=== PATIENT | male | born 1955 | race Two or more races ===

== ENCOUNTER 2025-01-05 17:56 | Emergency (ER) | payer OTHER, MEDICARE ==
[~2025-01-05] VITALS: Ht 170.2 cm; Wt 78.0 kg
[2025-01-05 18:01] VITALS: O2SAT 98
[2025-01-05 18:45] LABS: EOSINOPHILS % 3.9 % (0.0-5.0); HEMATOCRIT. 43.8 % (42.0-52.0); HEMOGLOBIN. 14.5 g/dL (14.0-18.0); LYMPHOCYTES % 42.8 % (20.0-50.0); MEAN CORPUSCULAR HEMOGLOBIN 31.2 pg (28.0-32.0); MEAN CORPUSCULAR HGB CONC 33.1 g/dL (31.0-37.0); MEAN CORPUSCULAR VOLUME 94.2 fL (80.0-94.0); MEAN PLATELET VOLUME 9.2 fl (7.4-10.4); MONOCYTES % 9.8 % (2.0-8.0); NEUTROPHILS % 42.5 % (40.0-76.0); PLATELET 206 x1000/uL (130-400); RED BLOOD CELL COUNT 4.65 mill/uL (4.7-6.1); RED CELL DISTRIBUTION WIDTH 14.5 % (11.6-14.6); WHITE BLOOD COUNT 3.8 x1000/uL (4.5-11.0)
[2025-01-05 18:51] LABS: CHLORIDE 107 mEq/L (98-107); POTASSIUM 4.2 mEq/L (3.5-5.1); SODIUM 143 mEq/L (136-145)
[2025-01-05 18:52] LABS: CALCIUM 8.9 mg/dL (8.7-10.4); CARBON DIOXIDE 29 mEq/L (21-32)
[2025-01-05 18:56] LABS: PROTHROMBIN TIME 10.3 sec (9.6-11.0)
[2025-01-05 18:57] LABS: CREATININE 1.1 mg/dL (0.6-1.3); GLUCOSE 83 mg/dL (70-105); UREA NITROGEN BLOOD 12 mg/dL (9-23)
[2025-01-05 18:58] LABS: ETHANOL BLOOD < 10 mg/dL (<10)
[2025-01-05 19:00] LABS: TROPONIN I HIGH SENSITIVITY < 4 ng/L (3.0-53)
[2025-01-05 19:42] VITALS: BP 140/66; PULSE 88; RESP 17; TEMP 36.9; O2SAT 98
[2025-01-06] MEDS ORDERED: IOHEXOL-350 100 ML BOTTLE ONE (00:35)
== END 2025-01-05 19:40 | disposition home or self-care (01) ==
LOC: ER 17:56 → EDBEDREQ 18:17 → ER 19:40
DX: G45.9 Transient cerebral ischemic attack, unspecified (principal); R29.810 Facial weakness; Z79.899 Other long term (current) drug therapy
CPT/HCPCS: 80048; 80320; 83880; 85025; 85610; 84484; 36415; 71045; 70496; 70498; 70450; 93005; 99291; Q9967; Z7610; G0480